=== PATIENT | male | born 2000 | race Caucasian/White ===

== ENCOUNTER 2023-06-14 13:08 | Emergency (ER) | payer SELFPAY ==
[2023-06-14] MEDS ORDERED: Albuterol 8 GM Inhaler INH ONE (14:51)
[2023-06-14 15:05] LABS: CORONAVIRUS COVID-19 NAA NEGATIVE (NEGATIVE); INFLUENZA A NAA NEGATIVE (NEGATIVE); INFLUENZA B NAA NEGATIVE (NEGATIVE)
== END 2023-06-14 16:10 | disposition home or self-care (01) ==
LOC: MW.ED 13:08
DX: J40 Bronchitis, not specified as acute or chronic (principal); Z20.822 Contact with and (suspected) exposure to COVID-19
CPT/HCPCS: 0240U; 71045; 87651; 99284; A9270; 99283

== ENCOUNTER 2023-07-30 05:04 | Emergency (ER) | payer MEDICAID ==
[2023-07-30] MEDS ORDERED: Ibuprofen 600 MG Tab PO ONE (05:31)
[2023-07-30] MEDS ORDERED: Acetaminophen 325 MG Tab PO ONE (05:31)
[2023-07-30 06:00] LABS: CORONAVIRUS COVID-19 NAA POSITIVE (NEGATIVE); INFLUENZA A NAA NEGATIVE (NEGATIVE); INFLUENZA B NAA NEGATIVE (NEGATIVE)
== END 2023-07-30 06:21 | disposition home or self-care (01) ==
LOC: MW.ED 05:04
DX: U07.1 COVID-19 (principal); B34.9 Viral infection, unspecified
CPT/HCPCS: 0240U; 99284; A9270; 99283

== ENCOUNTER 2024-10-19 08:16 | Emergency (ER) | payer MEDICAID ==
[2024-10-19] MEDS: Ibuprofen 600 MG Tab PO ONE (09:04)
== END 2024-10-19 10:06 | disposition home or self-care (01) ==
LOC: MW.ED 08:16
DX: B34.9 Viral infection, unspecified (principal); F17.210 Nicotine dependence, cigarettes, uncomplicated; Z20.828 Contact with and (suspected) exposure to other viral communicable diseases; Z75.8 Other problems related to medical facilities and other health care
CPT/HCPCS: 71046; 87428; 87651; 99285; A9270; 99283

== ENCOUNTER 2025-01-22 12:48 | Emergency (ER) | payer SELFPAY ==
[2025-01-22] MEDS: Acetaminophen 500 MG Tab PO ONE (14:11)
[2025-01-22] MEDS: Ibuprofen 400 MG Tab PO ONE (14:11)
[2025-01-22 15:00] LABS: CORONAVIRUS COVID-19 NAA NEGATIVE (NEGATIVE); INFLUENZA A NAA NEGATIVE (NEGATIVE); INFLUENZA B NAA NEGATIVE (NEGATIVE)
== END 2025-01-22 16:20 | disposition home or self-care (01) ==
LOC: MW.ED 12:48
DX: B34.9 Viral infection, unspecified (principal); Z79.899 Other long term (current) drug therapy
CPT/HCPCS: 0240U; 87651; 99284; A9270